=== PATIENT | female | born 1995 | race Caucasian/White ===

== ENCOUNTER 2020-02-28 21:33 | Emergency (ER) | payer SELFPAY ==
[~2020-02-28] VITALS: Ht 157.5 cm; Wt 51.7 kg
[2020-02-28 21:33] VITALS: BP 121/60
[2020-02-28] MEDS ORDERED: LATU120T PO (21:44)
== END 2020-02-28 23:04 | disposition left against medical advice (07) ==
LOC: M ED 21:33
DX: Z53.21 Procedure and treatment not carried out due to patient leaving prior to being seen by health care provider (principal)

== ENCOUNTER 2020-03-06 12:11 | Emergency (ER) | payer OTHER, SELFPAY ==
[~2020-03-06] VITALS: Ht 157.5 cm; Wt 51.4 kg
[~2020-03-06 12:11] MED LIST: LATU120T PO
[2020-03-06] MEDS ORDERED: METOCLOPRAMIDE INJ 10MG/2ML VIAL (J2765 PER 1) IV ONE (14:30)
[2020-03-06] MEDS ORDERED: NS 1,000 ML IV ONE (14:30)
[2020-03-06 14:53] LABS: BASO % 0.3 % (0.0-1.0); EOS # 0.1 10^3/uL (0.0-0.5); EOS % 1.2 % (0.0-3.0); HEMATOCRIT 39.3 % (36.0-47.0); HEMOGLOBIN 13.3 g/dl (12.0-15.5); LYMPH # 1.7 10^3/uL (1.5-5.0); LYMPH % 16.8 % (24.0-44.0); MEAN CORPUSCULAR HEMOGLOBIN 29.8 pg (27.0-33.0); MEAN CORPUSCULAR HGB CONC 33.8 g/dl (32.0-36.5); MEAN CORPUSCULAR VOLUME 88.1 fl (80.0-96.0); MONO # 0.6 10^3/uL (0.0-0.8); MONO % 6.2 % (0.0-5.0); NEUTROPHILS # 7.4 10^3/uL (1.5-8.5); NEUTROPHILS % 75.2 % (36.0-66.0); PLATELET COUNT, AUTOMATED 223 10^3/uL (150-450); RED BLOOD COUNT 4.46 10^6/uL (4.00-5.40); WHITE BLOOD COUNT 9.9 10^3/uL (4.0-10.0)
[2020-03-06 15:43] LABS: BLOOD UREA NITROGEN 14 MG/DL (7-18); CALCIUM LEVEL 9.1 MG/DL (8.5-10.1); CARBON DIOXIDE LEVEL 23 MEQ/L (21-32); CHLORIDE LEVEL 106 MEQ/L (98-107); CREATININE FOR GFR 0.56 MG/DL (0.55-1.30); GLOMERULAR FILTRATION RATE > 60.0 (>60); GLUCOSE, FASTING 76 MG/DL (70-100); HCG, SERUM QUANTITATIVE 60229 MIU/ML; POTASSIUM SERUM 3.7 MEQ/L (3.5-5.1); SODIUM LEVEL 137 MEQ/L (136-145)
[2020-03-06] MEDS ORDERED: PYRI25TA2 PO (15:59)
[2020-03-06] MEDS ORDERED: UNIS25TA3 PO (15:59)
[2020-03-06 16:25] VITALS: BP 115/57
== END 2020-03-06 17:15 | disposition home or self-care (01) ==
LOC: M ED 12:11
DX: O21.1 Hyperemesis gravidarum with metabolic disturbance (principal); O99.281 Endocrine, nutritional and metabolic diseases complicating pregnancy, first trimester; O99.331 Smoking (tobacco) complicating pregnancy, first trimester; O99.341 Other mental disorders complicating pregnancy, first trimester; Z3A.01 Less than 8 weeks gestation of pregnancy; Z88.0 Allergy status to penicillin; Z88.8 Allergy status to other drugs, medicaments and biological substances; Z91.040 Latex allergy status
CPT/HCPCS: 36415; 80048; 84702; 85025; 96361; 96374; 99284; J2765

== ENCOUNTER → 2020-03-19 | Outpatient (REF) | payer OTHER ==
[~2020-03-19] MED LIST changes: +PYRI25TA2 PO; +UNIS25TA3 PO
[2020-03-19 14:18] LABS: HEMATOCRIT 41.6 % (36.0-47.0); HEMOGLOBIN 13.7 g/dl (12.0-15.5); MEAN CORPUSCULAR HEMOGLOBIN 29.8 pg (27.0-33.0); MEAN CORPUSCULAR HGB CONC 32.9 g/dl (32.0-36.5); MEAN CORPUSCULAR VOLUME 90.6 fl (80.0-96.0); PLATELET COUNT, AUTOMATED 275 10^3/uL (150-450); RED BLOOD COUNT 4.59 10^6/uL (4.00-5.40)
[2020-03-19 15:09] LABS: HEPATITIS B SURFACE ANTIGEN NEGATIVE (NEGATIVE); HEPATITIS C VIRUS ABY INDEX 0.1 INDEX (<0.8); HIV 1&2 SCREEN CENTAUR NEGATIVE (NEGATIVE)
[2020-03-19 15:57] LABS: CHLAMYDIA DNA AMPLIFICATION NEGATIVE (NEGATIVE); GC DNA AMPLIFICATION NEGATIVE (NEGATIVE)
== END ==
LOC: M PLALAB 13:29
PROVIDERS: ATTEND Advanced Practice Midwife
DX: Z34.01 Encounter for supervision of normal first pregnancy, first trimester (principal); Z3A.00 Weeks of gestation of pregnancy not specified

== ENCOUNTER → 2020-05-28 | Outpatient (CLI) | payer OTHER ==
--- NOTE | 2020-05-28 09:40 | REP ---
INDICATION: ANATOMY COMPARISON: None. TECHNIQUE: Transabdominal obstetrical ultrasound with color Doppler evaluation. FINDINGS: Examination demonstrates a single live intrauterine in transverse (head to maternal right) presentation. motion is identified by technologist. Placenta is noted anterior and grade 1 without evidence for placenta previa or abruption. Amniotic fluid volume is normal. Cervix measures 4.0 cm in length and appears closed.. Gestational age by LMP 18 weeks 2 days with SPENCER 10/27/2020. Gestational age by current measurements 18 weeks 1 day with SPENCER 10/28/2020. FHR equals 144 beats per minute. BPD: 4.0 cm 18 weeks 2 days HC: 14.5 cm 17 weeks 5 days AC: 13.0 cm 18 weeks 4 days FL: 2.7 cm 18 weeks 1 day HL: 2.7 cm 18 weeks 3 days HC/AC: 1.12 Estimated weight 231 grams (43rdpercentile). Anatomical assessment demonstrates normal structures including cranium, choroid plexus, cavum, cerebellum/posterior fossa, facial features, lungs, four-chamber heart/ventricular outflow tracts, diaphragm, stomach, cord insertion/three-vessel cord, kidneys/bladder, spine, and extremities. IMPRESSION: Single live intrauterine demonstrating appropriate interval growth and estimated weight. Anatomical assessment is complete and normal. <Electronically signed by Issac Samuel > 05/28/20 [id number]
== END ==
LOC: M WHC 07:49
PROVIDERS: ATTEND Advanced Practice Midwife
DX: Z36.89 Encounter for other specified antenatal screening (principal); Z3A.18 18 weeks gestation of pregnancy

== ENCOUNTER → 2020-07-17 | Outpatient (REF) | payer OTHER ==
[2020-07-17 13:08] LABS: HEMATOCRIT 34.2 % (36.0-47.0); HEMOGLOBIN 10.8 g/dl (12.0-15.5); MEAN CORPUSCULAR HGB CONC 31.6 g/dl (32.0-36.5); MEAN CORPUSCULAR VOLUME 88.6 fl (80.0-96.0); PLATELET COUNT, AUTOMATED 283 10^3/uL (150-450); RED BLOOD COUNT 3.86 10^6/uL (4.00-5.40); WHITE BLOOD COUNT 10.4 10^3/uL (4.0-10.0)
== END ==
LOC: M PLALAB 10:26
PROVIDERS: ATTEND Advanced Practice Midwife
DX: Z3A.25 25 weeks gestation of pregnancy (principal)

== ENCOUNTER → 2020-07-19 | Outpatient (CLI) | payer OTHER | LOC: M LAB 07:01 | PROVIDERS: ATTEND Advanced Practice Midwife | DX: Z34.02 Encounter for supervision of normal first pregnancy, second trimester (principal); Z3A.00 Weeks of gestation of pregnancy not specified ==

== ENCOUNTER 2020-07-27 15:15 | Outpatient (CLI) | payer OTHER ==
[~2020-07-27] VITALS: Ht 157.5 cm; Wt 67.4 kg
[2020-07-27] VITALS (9 sets, daily range): BP systolic 110–124; BP diastolic 64–76
[2020-07-27] MEDS ORDERED: ZOLO50TA PO (15:43)
[2020-07-27] MEDS ORDERED: IRON65TA2 PO (15:44)
[2020-07-27] MEDS ORDERED: COLA100C5 PO (15:45)
[2020-07-27] MEDS ORDERED: PRENTAB9 PO (15:45)
[2020-07-27 16:48] LABS: HEMATOCRIT 32.8 % (36.0-47.0); HEMOGLOBIN 10.3 g/dl (12.0-15.5); MEAN CORPUSCULAR HEMOGLOBIN 27.5 pg (27.0-33.0); MEAN CORPUSCULAR HGB CONC 31.4 g/dl (32.0-36.5); MEAN CORPUSCULAR VOLUME 87.7 fl (80.0-96.0); PLATELET COUNT, AUTOMATED 263 10^3/uL (150-450); RED BLOOD COUNT 3.74 10^6/uL (4.00-5.40); WHITE BLOOD COUNT 11.1 10^3/uL (4.0-10.0)
[2020-07-27 17:26] LABS: ALBUMIN 2.8 GM/DL (3.2-5.2); ALT/SGPT 18 U/L (12-78); BILIRUBIN,TOTAL 0.1 MG/DL (0.2-1.0); BLOOD UREA NITROGEN 18 MG/DL (7-18); CALCIUM LEVEL 9.1 MG/DL (8.5-10.1); CARBON DIOXIDE LEVEL 25 MEQ/L (21-32); CHLORIDE LEVEL 105 MEQ/L (98-107); CREATININE FOR GFR 0.54 MG/DL (0.55-1.30); GLOMERULAR FILTRATION RATE > 60.0 (>60); GLUCOSE, FASTING 77 MG/DL (70-100); POTASSIUM SERUM 4.1 MEQ/L (3.5-5.1); SODIUM LEVEL 136 MEQ/L (136-145); TOTAL PROTEIN 6.6 GM/DL (6.4-8.2); TROPONIN I < 0.02 NG/ML (< 0.10)
--- NOTE | 2020-07-27 18:13 | HPEPDOC ---
Obstetrical History & Physical General Date of Admission 07/27/20 History of Present Illness 25yo G1 at 26+6 weeks EGA. Presented complaining of vague, intermittent shortness of breath and chest discomfort. Chest pain is not severe. Feels as if she needs to take deeper breaths. Non-radiating, non-provoked. This has been occurring for several days. She is not complaining of any VB/LOF/uctx. She reports +FM. No f/c/n/v/[place]. PMH: Bipolar, anxiety, eating disorder Meds: FeSO4, PNV (formerly on Latuda) SH:laparoscopy course: mild anemia (FeSO4 qd) Care Care: Good Care Past Medical History Allergies Coded Allergies: fluoxetine (Verified Allergy, Severe, MIGAINES, 03/06/20) gabapentin (Verified Allergy, Severe, seizures, hallucinations, 02/28/20) Penicillins (Verified Allergy, Intermediate, Hives, 02/28/20) latex (Verified Allergy, Intermediate, Rash, 02/28/20) methylphenidate (Verified Allergy, Intermediate, Migraines, 02/28/20) Medications Scheduled Docusate Sodium (Colace) 100 Mg Capsule, 1 CAP PO BID Ferrous Sulfate (Iron) 325 Mg Tablet, 1 TAB PO DAILY No.137/Iron/Folic Acd ( Vitamin Tablet) 1 Each Tablet, 1 TAB PO DAILY Sertraline Hcl (Zoloft) 50 Mg Tablet, 1 TAB PO DAILY Physical Examination Physical Examination GENERAL: Alert and oriented times three. BREAST: . ABDOMEN: Gravid and non-tender to touch. FETUS: Is vertex (VTX) by sterile vaginal examination (SVE), fetus is vertex (VTX) by Hammad. HEART RATE: Regular rate and rhythm. LUNGS: Clear to auscultation (CTA). EXTREMITIES: No edema. No clonus. Deep tendon reflexes (DTRs) + 2. EFM: Cat I/reactive [place]: no ctxs 12-lead EKG: NSR Vital Signs/I&O Vital Signs Date Time Temp Pulse Resp B/P (MAP) Pulse Ox O2 Delivery O2 Flow Rate FiO2 07/27/20 16:31 100 18 113/68 (83) 97-98% on RA 07/27/20 15:39 97.9 Laboratory Data 24H LABS Laboratory Tests 2 07/27/20 16:40: Nucleated Red Blood Cells % (auto) 0.0, Anion Gap 6L, Glomerular Filtration Rate > 60.0, Calcium Level 9.1, Total Bilirubin 0.1L, Aspartate Amino Transf (AST/S GOT) 12, Alanine Aminotransferase (ALT/SGPT) 18, Alkaline Phosphatase 60, Troponin I < 0.02, Total Protein 6.6, Albumin 2.8L, Albumin/Globulin Ratio 0.7L CBC/BMP Laboratory Tests 07/27/20 16:40 Assessment/Plan Assessment 25yo at 26+6 weeks with mild symptomatic anemia. Normotensive, afebrile. No clinical evidence suggestive of cardiopulmonary pathology. Reassuring maternal and clinical status. Pt offered reassurance. Plan Add FeSO4 BID to PNV. Routine second trimester precautions reviewed. Advised to return to hospital if she has significant worsening of her symptoms. DAMIEN YUEN DO Jul 27, 2020 18:13
--- NOTE | 2020-07-28 13:04 | ECGEPIP ---
[facility] Test Date: 2020-07-27 Pat Name: BRITTANY HARTLEY Department: Room: - Gender: Female [employer] Loom: MORELIA : 1995 Requested By: DAMIEN Morrow Order Number: [id number] Reading MD: Wesly Hilton Measurements Intervals [place] Rate: 96 P: 41 OR: 161 QRS: 58 QRSD: 82 T: 20 QT: 340 QTc: 430 Interpretive Statements SINUS RHYTHM NO PRIOR Electronically Signed on 07-28-2020 13:04:45 EST by Wesly Hilton
== END 2020-07-27 17:59 | disposition home or self-care (01) ==
LOC: M LDO 15:15
PROVIDERS: ATTEND Obstetrics & Gynecology
DX: O99.012 Anemia complicating pregnancy, second trimester (principal); O99.512 Diseases of the respiratory system complicating pregnancy, second trimester; R06.02 Shortness of breath; Z3A.26 26 weeks gestation of pregnancy

== ENCOUNTER → 2020-08-15 | Outpatient (REF) | payer OTHER ==
[~2020-08-15] MED LIST changes: +COLA100C5 PO; +IRON65TA2 PO; +PRENTAB9 PO; +ZOLO50TA PO
[2020-08-15 13:44] LABS: APPEARANCE, URINE CLEAR (CLEAR); BACTERIA, URINE AUTO NEGATIVE (NEGATIVE); BILIRUBIN, URINE AUTO NEGATIVE (NEGATIVE); BLOOD, URINE BLOOD NEGATIVE (NEGATIVE); COLOR, URINE YELLOW (YELLOW); GLUCOSE, URINE (UA) AUTO NEGATIVE (NEGATIVE); KETONE, URINE AUTO NEGATIVE (NEGATIVE); LEUKOCYTE ESTERASE, URINE AUTO NEGATIVE (NEGATIVE); MUCUS, URINE SMALL (NEGATIVE); NITRITE, URINE AUTO NEGATIVE (NEGATIVE); PROTEIN, URINE AUTO NEGATIVE (NEGATIVE); RBC, URINE AUTO 1 /HPF (0-3); SPECIFIC GRAVITY URINE AUTO 1.018 (1.002-1.035); SQUAMOUS EPITHELIAL CELL UR AU 0 /HPF (0-6); UROBILINOGEN, URINE AUTO 0.2 mg/dL (0.0-2.0); WBC, URINE AUTO 1 /HPF (0-3)
== END ==
LOC: M SFHCWAGY 13:06
PROVIDERS: ATTEND Advanced Practice Midwife
DX: Z3A.29 29 weeks gestation of pregnancy (principal)

== ENCOUNTER 2020-09-09 14:07 | Emergency (ER) | payer OTHER ==
[~2020-09-09] VITALS: Ht 157.5 cm; Wt 73.2 kg
[2020-09-09] MEDS ORDERED: FERR325T3 (14:19)
[2020-09-09] MEDS ORDERED: LATU20TA (14:19)
[2020-09-09] MEDS ORDERED: NS 1,000 ML IV ONE (15:40)
[2020-09-09 17:03] LABS: VENOUS BASE EXCESS -1.6 (-2.0-2.0); VENOUS HCO3 22.8 MEQ/L (23.0-27.0); VENOUS O2 SATURATION 99.5 % (60.0-80.0); VENOUS PARTIAL PRESSURE CO2 37.1 mmHg (38.0-50.0); VENOUS PARTIAL PRESSURE O2 152.3 mmHg (30.0-50.0); VENOUS PH 7.406 UNITS (7.330-7.430); VENOUS STANDARD HCO3 23.2 MEQ/L; VENOUS TOTAL CO2 23.9 MEQ/L (24.0-28.0)
[2020-09-09 17:14] LABS: BASO # 0.1 10^3/uL (0.0-0.2); BASO % 0.6 % (0.0-1.0); EOS # 0.4 10^3/uL (0.0-0.5); HEMOGLOBIN 9.9 g/dl (12.0-15.5); LYMPH # 2.2 10^3/uL (1.5-5.0); LYMPH % 17.3 % (24.0-44.0); MEAN CORPUSCULAR HEMOGLOBIN 25.3 pg (27.0-33.0); MEAN CORPUSCULAR HGB CONC 30.9 g/dl (32.0-36.5); MEAN CORPUSCULAR VOLUME 81.8 fl (80.0-96.0); MONO # 1.1 10^3/uL (0.0-0.8); MONO % 8.7 % (2.0-8.0); NEUTROPHILS # 8.6 10^3/uL (1.5-8.5); NEUTROPHILS % 68.9 % (36.0-66.0); PLATELET COUNT, AUTOMATED 279 10^3/uL (150-450); RED BLOOD COUNT 3.91 10^6/uL (4.00-5.40); WHITE BLOOD COUNT 12.5 10^3/uL (4.0-10.0)
[2020-09-09 17:35] LABS: INR 1.02; PROTHROMBIN TIME 13.6 SECONDS (12.5-14.3)
[2020-09-09 17:38] LABS: ALBUMIN 2.9 GM/DL (3.2-5.2); ALT/SGPT 14 U/L (12-78); BILIRUBIN,DIRECT 0.1 MG/DL (0.0-0.2); BILIRUBIN,TOTAL 0.2 MG/DL (0.2-1.0); CK-MB VALUE MASS < 1.0 NG/ML (<3.6); CPK CREATINE PHOSPHOKINASE 35 U/L (26-192); D-DIMER QUANT 1819.58 ng/ml (<500); LIPASE 125 U/L (73-393); MB/CK RELATIVE INDEX 2.86 (< OR =4); NT-PRO BNP 20 PG/ML (<125); THYROXINE (T4) 12.8 UG/DL (4.5-12.0); TOTAL PROTEIN 6.6 GM/DL (6.4-8.2); TROPONIN I < 0.02 NG/ML (< 0.10)
--- NOTE | 2020-09-09 18:44 | REPVR ---
PROCEDURE INFORMATION: Exam: US Duplex Lower Extremity Veins, Bilateral Exam date and time: 09/09/2020 6:23 PM Age: 25 years old Clinical indication: Swelling (edema) of limb; Lower extremity, bilateral; Additional info: Leg swelling/sob/ 33 wks, inc d-dimer TECHNIQUE: Imaging protocol: Real-time duplex ultrasound of the extremities with 2-D elias scale, color Doppler flow and spectral waveform analysis with image documentation. Complete exam focused on the bilateral lower extremity veins. COMPARISON: No relevant prior studies available. FINDINGS: Right deep veins: Unremarkable. The common femoral, femoral and popliteal veins are patent without thrombus. Normal Doppler waveforms. Normal compressibility and/or augmentation response. Right superficial veins: Saphenofemoral junction is patent without thrombus. Left deep veins: Unremarkable. The common femoral, femoral and popliteal veins are patent without thrombus. Normal Doppler waveforms. Normal compressibility and/or augmentation response. Left superficial veins: Saphenofemoral junction is patent without thrombus. Soft tissues: Unremarkable. IMPRESSION: No sonographic evidence of deep vein thrombosis. Electronically signed by: Williams Cano On 09/09/2020 18:45:32 PM
[2020-09-09] MEDS ORDERED: COLA100C5 PO (19:13)
[2020-09-09] MEDS ORDERED: FERR32TA PO (19:13)
--- NOTE | 2020-09-09 19:40 | ECGEPIP ---
[facility] - ED Test Date: 2020-09-09 Pat Name: BRITTANY HARTLEY Department: Room: - Gender: Female Customer Contact Representative: JAMES : 1995 Requested By: Lydia Mark Order Number: [id number] Reading MD: Lydia Mark Measurements Intervals [place] Rate: 116 P: 47 [place]: 148 QRS: 66 QRSD: 76 T: 2 QT: 306 QTc: 425 Interpretive Statements Sinus tachycardia Nonspecific T wave abnormality cw 07/27/[address] T WAVE CHANGES Electronically Signed on 09-09-2020 19:39:53 EST by Lydia Mark
[2020-09-09 20:15] VITALS: BP 122/76
== END 2020-09-09 20:18 | disposition home or self-care (01) ==
LOC: M ED 14:07
DX: O26.93 Pregnancy related conditions, unspecified, third trimester (principal); O99.013 Anemia complicating pregnancy, third trimester; O99.513 Diseases of the respiratory system complicating pregnancy, third trimester; R00.0 Tachycardia, unspecified; O99.343 Other mental disorders complicating pregnancy, third trimester; O34.83 Maternal care for other abnormalities of pelvic organs, third trimester; O99.323 Drug use complicating pregnancy, third trimester; Z79.899 Other long term (current) drug therapy; Z88.0 Allergy status to penicillin; Z88.8 Allergy status to other drugs, medicaments and biological substances; Z91.040 Latex allergy status

== ENCOUNTER 2020-09-18 07:37 | Outpatient (CLI) | payer OTHER ==
[~2020-09-18] VITALS: Ht 157.5 cm; Wt 73.2 kg
[~2020-09-18 07:37] MED LIST changes: +FERR325T3; +FERR32TA PO; +LATU20TA PO
[2020-09-18] MEDS ORDERED: IRON SUCROSE 500 MG in NS 250 ML OVER 4 HRS IV ONE (08:00)
[2020-09-18 08:03] VITALS: BP 117/58
[2020-09-18 08:50] VITALS: BP 112/64
[2020-09-18 09:50] VITALS: BP 111/57
[2020-09-18 10:46] VITALS: BP 117/68
[2020-09-18 12:53] VITALS: BP 121/68
[2020-09-18 13:35] VITALS: BP 116/69
== END 2020-09-18 13:45 | disposition home or self-care (01) ==
LOC: M INFU 07:37
PROVIDERS: ATTEND Advanced Practice Midwife
DX: D64.9 Anemia, unspecified (principal); Z88.0 Allergy status to penicillin; Z88.8 Allergy status to other drugs, medicaments and biological substances; Z91.040 Latex allergy status
CPT/HCPCS: 96365; 96366; J1756

== ENCOUNTER → 2020-09-26 | Outpatient (REF) | payer OTHER | LOC: M PLALAB 17:26 | PROVIDERS: ATTEND Obstetrics & Gynecology | DX: Z3A.35 35 weeks gestation of pregnancy (principal) ==

== ENCOUNTER → 2020-09-27 | Outpatient (REF) | payer OTHER | LOC: M SFHCWAGY 13:42 | PROVIDERS: ATTEND Obstetrics & Gynecology | DX: Z36.89 Encounter for other specified antenatal screening (principal); Z3A.35 35 weeks gestation of pregnancy ==

== ENCOUNTER 2020-10-10 15:10 | Outpatient (CLI) | payer OTHER ==
[~2020-10-10] VITALS: Ht 157.5 cm; Wt 78.7 kg
[2020-10-10] MEDS ORDERED: LATU20TA PO (15:30)
[2020-10-10] MEDS ORDERED: SERTRALINE PO (15:30)
[2020-10-10 15:36] VITALS: BP 103/56
--- NOTE | 2020-10-10 16:16 | IPNPDOC ---
Text Note Date of Service The patient was seen on 10/10/20. NOTE Triage Note Doris is a 25yo with SIUP at 37w4d with SPENCER 10/27 presenting for DFM, some cramping and vaginal spotting. She notes only 8 movements in 2 hours which made her nervous. After 20min in triage, she noted finally feeling good movement. Had a cervix check in the office on 10/08 and today noted some brownish spotting. No regular/painful ctx. No lof. Vitals wnl, afebrile Gen: WDWN, resting comfortably Abdomen: soft, gravid, NTTP Extremities: no edema of BLE Cat I FHRT with +accels, -decels, mod jourdan [place]: no regular ctx pattern SCE: ft/50/-2 TAUS: SIUP with +FCA, +FM, cephalic, anterior placenta, MVP 4cm Assessment: Doris is a 25yo with SIUP at 37w4d with SPENCER 10/27 having reassuring assessment with Cat I FHRT and MVP 4cm. No e/o labor, SCE ft/50/-2 but spotting likely related to cervical effacement. Plan: -Provided reassurance -Next office visit on 10/14 pt to keep -Discussed return precautions Leydi Hou MD VS,Katie, I+O VSKatie I+O Vital Signs Date Time Temp Pulse Resp B/P (MAP) Pulse Ox O2 Delivery O2 Flow Rate FiO2 10/10/20 15:36 97.7 102 103/56 (72) Leydi Hou MD Oct 10, 2020 16:16
== END 2020-10-10 16:15 | disposition home or self-care (01) ==
LOC: M LDO 15:10
PROVIDERS: ATTEND Obstetrics & Gynecology
DX: O36.8130 Decreased fetal movements, third trimester, not applicable or unspecified (principal); O26.853 Spotting complicating pregnancy, third trimester; Z3A.37 37 weeks gestation of pregnancy

== ENCOUNTER 2020-10-19 13:45 | Outpatient (CLI) | payer OTHER ==
[~2020-10-19] VITALS: Ht 157.5 cm; Wt 77.6 kg
[~2020-10-19 13:45] MED LIST changes: +SERTRALINE PO
[2020-10-19 14:05] VITALS: BP 118/65
[2020-10-19] MEDS ORDERED: OMEP10CASR PO (14:11)
[2020-10-19 15:27] VITALS: BP 120/68
== END 2020-10-19 15:38 | disposition home or self-care (01) ==
LOC: M LDO 13:45
PROVIDERS: ATTEND Obstetrics & Gynecology
DX: O47.1 False labor at or after 37 completed weeks of gestation (principal); Z3A.38 38 weeks gestation of pregnancy; Z88.0 Allergy status to penicillin; Z88.8 Allergy status to other drugs, medicaments and biological substances; Z91.040 Latex allergy status

== ENCOUNTER → 2020-10-20 | Outpatient (CLI) | payer OTHER ==
[~2020-10-20] MED LIST changes: +OMEP10CASR PO
== END ==
LOC: M LABSMTC 09:35
PROVIDERS: ATTEND Specialist
DX: Z20.822 Contact with and (suspected) exposure to COVID-19 (principal)

== ENCOUNTER 2020-10-26 15:23 | Outpatient (CLI) | payer OTHER ==
[~2020-10-26] VITALS: Ht 157.5 cm; Wt 78.8 kg
[2020-10-26] MEDS ORDERED: COLA100C5 PO (15:47)
[2020-10-26 15:48] VITALS: BP 137/89
--- NOTE | 2020-10-26 18:28 | IPNPDOC ---
Text Note Date of Service The patient was seen on 10/26/20. NOTE L&D Triage Note: S: 25yo G1 at 39w6d presents for labor check. Reports contraction q3-5mins >2hrs. No vaginal bleeding or LOF. Reports active movement. O: vss, AF cat 1 tracing, +ctx gen: well appearing abd: gravi,nttp cx: 2/75/-2, unchanged after 2hrs. A/P: 25yo G1 at 39w6d with ctx, not active labor Reassuring status -Labor precautions and FKCs Rosa Sierra MD VS,Katie, I+O VS, Sujathae, I+O Vital Signs Date Time Temp Pulse Resp B/P (MAP) Pulse Ox O2 Delivery O2 Flow Rate FiO2 10/26/20 15:48 98.5 104 16 137/89 (105) ROSA SIERRA MD. Oct 26, 2020 18:28
== END 2020-10-26 17:42 ==
LOC: M LDO 15:23
PROVIDERS: ATTEND Obstetrics & Gynecology
DX: O47.1 False labor at or after 37 completed weeks of gestation (principal); Z3A.39 39 weeks gestation of pregnancy; Z88.0 Allergy status to penicillin; Z88.8 Allergy status to other drugs, medicaments and biological substances; Z91.040 Latex allergy status